=== PATIENT | male | born 1965 | race Caucasian/White ===

== ENCOUNTER → 2022-05-28 09:09 | Outpatient (BNVA) | payer MEDICAID, SELFPAY | PROVIDERS: PCP Nurse Practitioner Family; Visit Provider Nurse Practitioner Family | DX: I10 Essential (primary) hypertension (principal) | CPT/HCPCS: 80053; 80061; 84443 ==

== ENCOUNTER 2022-06-12 07:05 | Outpatient (CLI) | payer MEDICAID, SELFPAY ==
--- NOTE | 2022-06-12 07:15 | USCV_ITS ---
Gabe Poe Age: 56 Gender: M : 1965 Exam Date: 06/12/2022 07:21 Ordering Phys: Mayra Barrow Technologist: CT Exam Location: [facility] [place]_ Indication: hypertension Aortic Velocity @ SMA (cm/s) 90.1 RIGHT KIDNEY LEFT KIDNEY Velocity (cm/s) Velocity (cm/s) Sys/Ayers Sys/Ayers Resistive Index Resistive Index / Proximal Renal Artery 41.8 / 17.4 0.58 75.2 / 27.0 0.64 Mid Renal Artery 78.4 / 28.0 0.64 46.6 / 19.6 0.58 Distal Renal Artery 84.7 / 27.5 0.67 42.8 / 17.7 0.59 Hilar 49.6 / 19.6 0.61 43.0 / 22.2 0.48 Upper Pole 30.1 / 11.9 0.61 23.7 / 12.5 0.47 Mid Pole 24.5 / 10.0 0.59 17.0 / 10.6 0.37 Lower Pole 21.7 / 9.2 0.58 0.80 Renal Aortic Ratio 0.94 Accleration Index (cm/sec2) 456.00 Hilar 513.00 472.00 Upper Pole 330.00 332.00 Mid Pole 359.00 386.00 Lower Pole 330.00 103.9 Kidney Length (mm) 110.6 FINDINGS Technically difficult study. No evidence of abdominal aortic aneurysm. There is no evidence of hemodynamically significant left renal artery stenosis. There is no evidence of hemodynamically significant right renal artery stenosis. CONCLUSIONS Examination limited by body habitus. No renal artery stenosis seen. Dr. Lori Holder DO (Electronically Signed) Final Date: 12 June 2022 09:58 S
== END 2022-06-12 07:06 | disposition home or self-care (01) ==
LOC: RAD 07:06
PROVIDERS: PCP Nurse Practitioner Family; Visit Provider Nurse Practitioner Family
DX: I10 Essential (primary) hypertension (principal)
CPT/HCPCS: 93975

== ENCOUNTER 2022-09-17 14:24 | Outpatient (CLI) | payer MEDICAID, SELFPAY ==
--- NOTE | 2022-09-17 16:08 | XRR_ITS ---
PROCEDURE INFORMATION: Exam: XR Right Knee Exam date and time: 09/17/2022 4:10 PM Age: 56 years old Clinical indication: Patient HX: --pain in the right knee for 6-8 months, no known injury; Additional info: S89.91xa - unspecified injury of right lower leg, initial. . . TECHNIQUE: Imaging protocol: Radiologic exam of the right knee. Views: 3 views. COMPARISON: No relevant prior studies available. FINDINGS: Bones/joints: Mild degenerative narrowing of the medial and anterior joint compartments. Minimal medial osteophyte formation noted. No joint effusion demonstrated. No acute fracture or other acute osseous abnormality. Soft tissues: The soft tissues are unremarkable as demonstrated. XR/XR knee RT 3V* [id number] IMPRESSION: 1. Mild to moderate degenerative arthritis of the right knee. 2. No acute abnormality demonstrated.
== END 2022-09-17 14:25 | disposition home or self-care (01) ==
LOC: RAD 14:28
PROVIDERS: PCP Nurse Practitioner Family; Visit Provider Nurse Practitioner Family
DX: S89.91XA Unspecified injury of right lower leg, initial encounter (principal); X58.XXXA Exposure to other specified factors, initial encounter; M17.11 Unilateral primary osteoarthritis, right knee
CPT/HCPCS: 73562

== ENCOUNTER 2022-10-22 07:57 | Outpatient (CLI) | payer MEDICAID, SELFPAY ==
--- NOTE | 2022-10-22 08:00 | MR_ITS ---
WS: [id number] MRI RIGHT KNEE NONCONTRAST TECHNIQUE: Axial PD, coronal PD fat sat, coronal PD, sagittal PD, and sagittal PD fat-sat images huang santana. CLINICAL INFORMATION: S89.91XA - Unspecified injury of right lower leg, initial... COMPARISON: None. FINDINGS: Distal quadriceps and patellar tendons are intact. Small suprapatellar effusion. Increased T1 and T2 signal normality involving the ACL compatible with mucoid degeneration. ACL appears intact. Normal PC L. Chronic thinning of the medial and lateral meniscus. Tear of the medial meniscal root with bone-on-joycelyn ne articulation and peripheral extrusion. Moderate chondromalacia involving the medial and lateral aby int compartments. Hypertrophic changes along the joint line. Small to moderate suprapatellar effusion. Popliteal cyst m easuring 3.7 x 1.4 cm. Hypertrophic changes along the joint line. Subchondral cystic change involving the lateral femoral condyle and intercondylar tibial notch. Perip heral extrusion of the medial meniscus. Normal medial and lateral patellar retinaculum. Grade III cho ndromalacia patella. No subchondral edema. Lateral collateral ligament appears intact. Normal biceps femoris. Fluid and edema deep to the MCL. M CL appears intact. IMPRESSION: 1. Mucoid degeneration ACL. PCL appears intact. 2. Moderate suprasellar effusion. 3. Tear of the medial meniscal root with blunting of the anterior and posterior horns and peripheral extrusion of the medial meniscus. 4. Fluid and edema deep to the medial collateral ligament consistent with grade 1-2 injury which maria de jesus ears intact. 5. LCL appears intact. 6. Moderate chondromalacia patella. No subchondral edema. 7. Small popliteal cyst measuring 3.7 x 1.4 cm Outbridge grading: grade III: partial-thickness cartilage loss with focal ulceration
== END 2022-10-22 07:58 | disposition home or self-care (01) ==
PROVIDERS: PCP Nurse Practitioner Family; Visit Provider Nurse Practitioner Family
DX: S83.241A Other tear of medial meniscus, current injury, right knee, initial encounter (principal); X58.XXXA Exposure to other specified factors, initial encounter; M23.8X1 Other internal derangements of right knee; M25.461 Effusion, right knee; M22.41 Chondromalacia patellae, right knee; M71.21 Synovial cyst of popliteal space [Baker], right knee
CPT/HCPCS: 73721

== ENCOUNTER → 2022-11-05 14:06 | Outpatient (BNVA) | payer MEDICAID, SELFPAY | PROVIDERS: PCP Nurse Practitioner Family; Referring Provider Nurse Practitioner Family; Visit Provider Specialist | DX: M17.11 Unilateral primary osteoarthritis, right knee | CPT/HCPCS: 73560; 73565 ==

== ENCOUNTER → 2023-02-18 10:41 | Outpatient (BNVA) | payer MEDICAID, SELFPAY | PROVIDERS: PCP Nurse Practitioner Family; Visit Provider Nurse Practitioner Family | DX: I10 Essential (primary) hypertension (principal) | CPT/HCPCS: 80053; 80061 ==

== ENCOUNTER → 2024-07-27 09:43 | Outpatient (BNVA) | payer MEDICAID, SELFPAY | PROVIDERS: PCP Nurse Practitioner Family; Visit Provider Nurse Practitioner Family | DX: I10 Essential (primary) hypertension (principal) | CPT/HCPCS: 80053; 80061 ==